=== PATIENT | female | born 1970 | race American Indian/Alaskan Native ===

== ENCOUNTER 2020-09-30 15:12 | Emergency (ER) | payer SELFPAY ==
--- NOTE | 2020-09-30 15:20 | Event Note ---
ED Screening Note Date of service: 09/30/20 Time: 15:19 ED Screening Note: Fatigue, coughing, shortness of breath, diarrhea, decreased appetite since last week. Denies loss of taste or smell this week. This initial assessment/diagnostic orders/clinical plan/treatment(s) is/are subject to change based on patients health status, clinical progression and re- assessment by fellow clinical providers in the ED. Further treatment and workup at subsequent clinical providers discretion. Patient/guardian urged not to elope from the ED as their condition may be serious if not clinically assessed and managed. Initial orders include: cbc, cmp Chest x-ray
--- NOTE | 2020-09-30 15:55 | XRay Report ---
CHEST 2 VIEWS INDICATION: cough, congestion. COMPARISON: none FINDINGS: Support devices: None. Heart: Within normal limits. Lungs: Multifocal patchy airspace changes are present throughout both lungs, left greater than right Pleura: No significant pleural effusion. No pneumothorax. Additional findings: None. IMPRESSION: 1. Bilateral pulmonary process left greater than right, inflammatory process is a concern Signer Name: Mack Schroeder MD Signed: 09/30/2020 3:50 PM Workstation Name: [id number]
[2020-09-30 16:41] LABS: Basophils % (Auto) 0.3 % (0.0-1.8); Eosinophils % (Auto) 0.5 % (0.0-4.3); Hematocrit 40.8 % (30.3-42.9); Hemoglobin 14.2 gm/dl (10.1-14.3); Lymphocytes # (Auto) 2.3 K/mm3 (1.2-5.4); Lymphocytes % (Auto) 34.5 % (13.4-35.0); Mean Corpuscular HGB Conc 35 % (30-34); Mean Corpuscular Volume 91 fl (79-97); Monocytes # (Auto) 0.5 K/mm3 (0.0-0.8); Monocytes % (Auto) 6.8 % (0.0-7.3); Platelet Count 279 K/mm3 (140-440); Red Blood Count 4.47 M/mm3 (3.65-5.03); Red Cell Distribution Width 13.3 % (13.2-15.2)
[2020-09-30 16:56] LABS: Alanine Aminotransferase 18 units/L (7-56); Albumin 3.5 g/dL (3.9-5); Blood Urea Nitrogen 11 mg/dL (7-17); Calcium 8.9 mg/dL (8.4-10.2); Hemolysis Index 3
[2020-09-30 16:58] LABS: BUN/Creatinine Ratio 16
[2020-09-30] MEDS ORDERED: DEXAMETHASONE 4 MG TAB PO ONE (17:40)
--- NOTE | 2020-09-30 17:42 | Emergency Department Report ---
HPI - General Chief Complaint: Upper Respiratory Infection Time Seen by Provider: 09/30/20 17:29 - HPI HPI: This is a 50-year-old female presents to the emergency department with complaint of a 1 week history of increased fatigue, mixed dry and productive cough, shortness of breath, body aches, fever, dizziness and diarrhea. The patient went to a [facility] out of town the weekend before last and when she returned on that Wednesday the symptoms began. The patient went last Wednesday and tested negative for COVID-19 at that time. She denies any tobacco or illicit drug use. No sick contacts at home. No known exposure to anyone with COVID-19. She denies any past medical history. ED Past Medical Hx - Past Medical History Previous Medical History?: No - Surgical History Past Surgical History?: No - Medications Home Medications: Home Medications Medication Instructions Recorded Confirmed Last Taken Type Albuterol Mdi (or & Nicu Only) 2 puff IH QID PRN #8.5 gram 09/30/20 Unknown Rx [ProAir HFA Inhaler] Azithromycin [Zithromax Z-KASIE] 250 mg PO DAILY #6 tab 09/30/20 Unknown Rx Benzonatate [Tessalon Perles] 100 mg PO Q8HR PRN #20 capsule 09/30/20 Unknown Rx ED Review of Systems ROS: Stated complaint: COUGH/LOW BLOOD PRESSURE Other details as noted in HPI Constitutional: chills, fever Eyes: denies: eye pain, vision change ENT: denies: ear pain, throat pain Respiratory: cough, shortness of breath Cardiovascular: denies: chest pain, palpitations Gastrointestinal: diarrhea. denies: abdominal pain Genitourinary: denies: dysuria, discharge Musculoskeletal: myalgia. denies: joint swelling Skin: denies: rash, lesions Neurological: denies: weakness, numbness Physical Exam - Physical Exam Vital Signs: Vital Signs 09/30/20 15:17 Temperature 98.1 F Pulse Rate 96 H Respiratory 16 Rate Blood Pressure 130/71 O2 Sat by Pulse 97 Oximetry Physical Exam: GENERAL: The patient is well-developed well-nourished. HENT: Normocephalic. Atraumatic. Patient has moist mucous membranes. EYES: Extraocular motions are intact. NECK: Supple. Trachea is midline. CHEST/LUNGS: Clear to auscultation. No tachypnea or accessory muscle use. There is no respiratory distress noted. HEART/CARDIOVASCULAR: Regular. There is no tachycardia. There is no murmur. ABDOMEN: Abdomen is soft, nontender. Patient has normal bowel sounds. Morbidly obese habitus. SKIN: Skin is warm and dry. NEURO: The patient is awake, alert, and oriented. The patient is cooperative. Normal speech. MUSCULOSKELETAL: There is no tenderness or deformity. There is no limitation range of motion. ED Course Vital Signs 09/30/20 15:17 Temperature 98.1 F Pulse Rate 96 H Respiratory 16 Rate Blood Pressure 130/71 O2 Sat by Pulse 97 Oximetry - Reevaluation(s) Reevaluation #1: 09/30/20 20:12 Lab Results 09/30/20 09/30/20 Range/Units 15:56 15:56 WBC 6.7 (4.5-11.0) K/mm3 RBC 4.47 (3.65-5.03) M/mm3 Hgb 14.2 (10.1-14.3) gm/dl Hct 40.8 (30.3-42.9) % MCV 91 (79-97) fl MCH 32 (28-32) pg MCHC 35 H (30-34) % RDW 13.3 (13.2-15.2) % Plt Count 279 (140-440) K/mm3 Lymph % (Auto) 34.5 (13.4-35.0) % [place] % (Auto) 6.8 (0.0-7.3) % Eos % (Auto) 0.5 (0.0-4.3) % Baso % (Auto) 0.3 (0.0-1.8) % Lymph # (Auto) 2.3 (1.2-5.4) K/mm3 [place] # (Auto) 0.5 (0.0-0.8) K/mm3 Eos # (Auto) 0.0 (0.0-0.4) K/mm3 Baso # (Auto) 0.0 (0.0-0.1) K/mm3 Seg Neutrophils % 57.9 (40.0-70.0) % Seg Neutrophils # 3.9 (1.8-7.7) K/mm3 Sodium 138 (137-145) mmol/L Potassium 4.0 (3.6-5.0) mmol/L Chloride 100.2 (98-107) mmol/L Carbon Dioxide 28 (22-30) mmol/L Anion Gap 14 mmol/L BUN 11 (7-17) mg/dL Creatinine 0.7 (0.6-1.2) mg/dL Estimated GFR > 60 ml/min BUN/Creatinine Ratio 16 % Glucose 290 H (65-100) mg/dL Calcium 8.9 (8.4-10.2) mg/dL Total Bilirubin 0.20 (0.1-1.2) mg/dL AST 17 (5-40) units/L ALT 18 (7-56) units/L Alkaline Phosphatase 81 (35-129) units/L Lactate Dehydrogenase 235 H (91-180) units/L C-Reactive Protein 3.30 H (0.00-1.30) mg/dL Total Protein 8.4 H (6.3-8.2) g/dL Albumin 3.5 L (3.9-5) g/dL Albumin/Globulin Ratio 0.7 % ED Medical Decision Making - Lab Data Result diagrams: 09/30/20 15:56 09/30/20 15:56 - Radiology Data Radiology results: report reviewed CHEST 2 VIEWS INDICATION: cough, congestion. COMPARISON: none FINDINGS: Support devices: None. Heart: Within normal limits. Lungs: Multifocal patchy airspace changes are present throughout both lungs, left greater than right Pleura: No significant pleural effusion. No pneumothorax. Additional findings: None. IMPRESSION: 1. Bilateral pulmonary process left greater than right, inflammatory process is a concern - Medical Decision Making This patient presents with body aches, diarrhea, dizziness, cough, shortness of breath that has been going on for about 1 week and started after the patient was out of town for a wedding. She had a negative COVID-19 test about 6 days ago. However, the patient's symptoms and ED work-up appear most consistent with a viral syndrome and possibly with COVID-19. There is no elevation in her white blood cell count, but there is elevation in the inflammatory markers such as CRP and LDH. Chest x-ray shows bilateral patchy infiltrates consistent with an atypical or viral pneumonia. Vital signs have been reassuring throughout her ED course thus far including being afebrile. There is no hypoxia. The patient appears safe for discharge home at this time and will be given a prescription for an albuterol inhaler, azithromycin, and an antitussive. I explained to the patient that we do not have [id number] COVID-19 testing and I am unable to test her for it at this time. She says that she is about to go out of town to visit her mother, and possibly others. I have recommended a nother outpatient COVID-19 testing and I have recommended isolation/quarantine from anybody who is immunocompromised, elderly or chronically ill. The patient has been instructed to return to the emergency department with any worsening of her symptoms or with any acute distress. Critical Care Time: No Critical care attestation.: If time is entered above; I have spent that time in minutes in the direct care of this critically ill patient, excluding procedure time. ED Disposition Clinical Impression: Suspected 2019 novel coronavirus infection, Viral syndrome Upper respiratory infection Qualifiers: URI type: unspecified URI Qualified Code(s): J06.9 - Acute upper respiratory infection, unspecified Pneumonia Qualifiers: Pneumonia type: due to unspecified organism Laterality: bilateral Lung location: unspecified part of lung Qualified Code(s): J18.9 - Pneumonia, unspecified organism Disposition: DC-01 TO HOME OR SELFCARE Is pt being admited?: No Condition: Stable Instructions: Viral Respiratory Infection Test, Viral Illness, Adult, Community-Acquired Pneumonia, Adult, [id number], Bacterial Pneumonia (ED) Additional Instructions: Please follow-up with a primary care physician in the next few days. Overall your symptoms appear most consistent with a viral upper respiratory infection and/or a viral syndrome. With your set of symptoms, the chest x-ray showing some small patchy areas of pneumonia, and this current pandemic, I have suspicion that you could have COVID-19. Unfortunately, I am unable to test you for COVID-19 at this time through the emergency department. I recommend that you seek outpatient COVID-19 testing. This can be done at some primary care offices, some urgent cares, and there should be a listing of testing facilities through the [place] [facility]. Please isolate/quarantine from anybody who is immunocompromised, elderly, or chronically ill. Take the medications as prescribed. Your blood sugar was elevated today. Try to stay away from foods that are high in sugar, carbohydrates and starches. Check your blood sugar and keep a blood sugar log, if you are able to do so. Return to the emergency department with any worsening of your symptoms, new or concerning symptoms not addressed during this current emergency department visit, or with any acute distress. Prescriptions: Albuterol Mdi (or & Nicu Only) [ProAir HFA Inhaler] 2 puff IH QID PRN #8.5 gram PRN Reason: Shortness Of Breath Benzonatate [Tessalon Perles] 100 mg PO Q8HR PRN #20 capsule PRN Reason: Cough Azithromycin [Zithromax Z-KASIE] 250 mg PO DAILY #6 tab Referrals: JOSHUA KING MD [Staff Physician] - 2-3 Days [facility] [Provider Group] - 2-3 Days Time of Disposition: 18:05
[2020-09-30 17:50] VITALS: BP 138/74
== END 2020-09-30 18:11 | disposition home or self-care (01) ==
LOC: ED 15:12
DX: J06.9 Acute upper respiratory infection, unspecified (principal); J18.9 Pneumonia, unspecified organism; B34.9 Viral infection, unspecified; Z79.899 Other long term (current) drug therapy; Z20.828 Contact with and (suspected) exposure to other viral communicable diseases
CPT/HCPCS: 36415; 71046; 80053; 83615; 85025; 86140; 99283; J8540